=== PATIENT | male | born 1955 | race Caucasian/White ===

== ENCOUNTER 2017-03-28 06:37 | Day surgery (SDC) | payer BC ==
[~2017-03-28] VITALS: Ht 180.3 cm; Wt 75.0 kg
[2017-03-28] VITALS (8 sets, daily range): BP systolic 92–106; BP diastolic 60–75; PULSE 71–79; TEMP 98.2
[~2017-03-28 06:37] MED LIST: ACTOS 15MG TAB15 MG PO; ASPIRIN E.C. 8181 MG; BETAPACE160 MG PO; BYDUREON P2 MG/0.65; BYDUREON2MG; CARDI-OMEGA1000 MG; DUO-KAPS1 CAP; FARXIGA5 PO; GLUCOPHAGE1000 MG PO; LIPITOR20 MG PO; MULTI VITAMINS1 TAB PO; NORCO 325 MG-51 TAB PO; OYSTER CALCIUM500 M1; OYSTER SHELL C500 M4 PO; SYNTHROID 0.0.025 MG PO; TOPROL XL 25MG25 MG PO; XARELTO10 MG PO; ZANAFLEX2 MG PO
[2017-03-28] MEDS ORDERED: MAGNESIUM250 M1 PO (06:53)
[2017-03-28] MEDS ORDERED: TRULICITY1.5 MG/0.5 SQ (06:54)
[2017-03-28] MEDS ORDERED: GLUCOPHAGE1000 MG PO (06:54)
[2017-03-28] MEDS ORDERED: XARELTO20 MG PO (06:55)
[2017-03-28 07:19] LABS: HEMATOCRIT 43.9 % (42.0-52.0); HEMOGLOBIN 15.5 g/dl (13.5-18.0); MEAN CELL VOLUME 88 fl (80.0-100.0); MEAN CORPUSCULAR HEMOGLOBIN 31 pg (27.0-31.0); MEAN CORPUSCULAR HGB CONC 35 g/dl (33.0-37.0); MEAN PLATELET VOLUME 10.3 fl (7.4-10.4); PLATELET COUNT 204 K/mm3 (130-400); RED BLOOD COUNT 5.02 M/mm3 (4.20-5.60); REDCELL DISTRIBUTION WIDTH-CV 12.2 % (11.5-14.5); WHITE BLOOD COUNT 8.2 K/mm3 (4.8-10.8)
[2017-03-28 07:28] LABS: INR 1.1 (0.8-3.0); PROTHROMBIN TIME 11.9 SECONDS (9.7-12.8)
[2017-03-28 07:40] LABS: CALCIUM 8.7 mg/dL (8.4-10.2); CREATININE, serum 0.76 mg/dL (0.66-1.25)
== END 2017-03-28 10:07 | disposition home or self-care (01) ==
LOC: EUO 06:37 → COL.CAR 06:45 → EUO 10:07
PROVIDERS: Internal Medicine Cardiovascular Disease
DX: I48.0 Paroxysmal atrial fibrillation (principal); E11.9 Type 2 diabetes mellitus without complications; E78.2 Mixed hyperlipidemia; Z79.01 Long term (current) use of anticoagulants; Z79.84 Long term (current) use of oral hypoglycemic drugs; Z82.49 Family history of ischemic heart disease and other diseases of the circulatory system; Z80.42 Family history of malignant neoplasm of prostate
CPT/HCPCS: J2704

== ENCOUNTER 2017-12-06 07:04 | Day surgery (SDC) | payer BC ==
[2017-12-06] VITALS (7 sets, daily range): BP systolic 90–105; BP diastolic 59–70; PULSE 75–82
[~2017-12-06] VITALS: Ht 180.3 cm; Wt 74.6 kg
[~2017-12-06 07:04] MED LIST changes: +CALCIUM 600MG+D1 TAB PO; +MAGNESIUM250 M1 PO; -OYSTER SHELL C500 M4 PO; +TRULICITY1.5 MG/0.5 SQ; +XARELTO20 MG PO
[2017-12-06 07:54] LABS: INR 1.3 (0.8-3.0); PROTHROMBIN TIME 14.5 SECONDS (9.7-12.8)
[2017-12-06 08:01] LABS: HEMATOCRIT 43.6 % (42.0-52.0); HEMOGLOBIN 15.3 g/dl (13.5-18.0); MEAN CELL VOLUME 89 fl (80.0-100.0); MEAN CORPUSCULAR HEMOGLOBIN 31 pg (27.0-31.0); MEAN CORPUSCULAR HGB CONC 35 g/dl (33.0-37.0); MEAN PLATELET VOLUME 10.5 fl (7.4-10.4); PLATELET COUNT 211 K/mm3 (130-400); RED BLOOD COUNT 4.88 M/mm3 (4.20-5.60); REDCELL DISTRIBUTION WIDTH-CV 12.3 % (11.5-14.5)
[2017-12-06 08:09] LABS: CALCIUM 8.8 mg/dL (8.4-10.2); CREATININE, serum 0.82 mg/dL (0.66-1.25); POTASSIUM 3.7 mmol/L (3.4-5.0)
[2017-12-06] MEDS ORDERED: ZYRTEC 10MG10 MG PO (08:25)
[2017-12-06] MEDS ORDERED: PRESERVISION1 SGL PO (08:26)
[2017-12-06] MEDS ORDERED: TAMBOCOR 1100 MG/TAB PO ×3 (09:01→09:07)
[2017-12-06] MEDS ORDERED: ZEBETA 5MG5 MG PO (09:01)
[2017-12-06] MEDS ORDERED: TAMBOCOR50 MG PO (09:10)
== END 2017-12-06 10:51 | disposition home or self-care (01) ==
LOC: COL.CAR 07:04
PROVIDERS: Internal Medicine Cardiovascular Disease
DX: I48.91 Unspecified atrial fibrillation (principal); Z79.01 Long term (current) use of anticoagulants; E03.9 Hypothyroidism, unspecified; E11.42 Type 2 diabetes mellitus with diabetic polyneuropathy; Z79.84 Long term (current) use of oral hypoglycemic drugs; Z79.899 Other long term (current) drug therapy; I45.10 Unspecified right bundle-branch block; F41.9 Anxiety disorder, unspecified; I10 Essential (primary) hypertension
CPT/HCPCS: J2704; J7120

== ENCOUNTER 2018-01-31 11:23 | Emergency (ER) | payer BC ==
[~2018-01-31] VITALS: Ht 180.3 cm; Wt 72.7 kg
[~2018-01-31 11:23] MED LIST changes: +PRESERVISION1 SGL PO; +TAMBOCOR 1100 MG/TAB PO; +TAMBOCOR50 MG PO; +ZEBETA 5MG5 MG PO; +ZYRTEC 10MG10 MG PO
[2018-01-31 11:51] LABS: BASO % 0.3 % (0.0-2.0); EOS # 0.1 (0.0-0.7); EOS % 0.4 % (0-4.0); GRAN # 9.8 (1.4-6.5); GRAN % 79.6 % (42.2-75.2); HEMATOCRIT 43.7 % (42.0-52.0); HEMOGLOBIN 15.1 g/dl (13.5-18.0); LYMPH # 1.3 (1.2-3.4); LYMPH % 10.6 % (20.0-51.0); MEAN CELL VOLUME 89 fl (80.0-100.0); MEAN CORPUSCULAR HEMOGLOBIN 31 pg (27.0-31.0); MEAN CORPUSCULAR HGB CONC 35 g/dl (33.0-37.0); MEAN PLATELET VOLUME 10.4 fl (7.4-10.4); MONO # 1.1 (0.1-0.6); MONO % 8.9 % (1.7-9.3); PLATELET COUNT 209 K/mm3 (130-400); RED BLOOD COUNT 4.91 M/mm3 (4.20-5.60); REDCELL DISTRIBUTION WIDTH-CV 12.5 % (11.5-14.5)
[2018-01-31 11:56] LABS: PROTHROMBIN TIME 11.3 SECONDS (9.7-12.8)
[2018-01-31 11:59] LABS: ALANINE AMINOTRANSFERASE 65 U/L (21-72); ALBUMIN 4.1 gm/dL (3.5-5.0); ALKALINE PHOSPHATASE 101 U/L (50-136); ANION GAP 10 mmol/L (7-16); AST,SGOT 60 U/L (15-37); BILIRUBIN,TOTAL 0.7 mg/dL (0.0-1.0); BLOOD UREA NITROGEN 17 mg/dL (9-20); CALCIUM 9.2 mg/dL (8.4-10.2); CARBON DIOXIDE 23 mmol/L (22-30); CHLORIDE 102 mmol/L (98-107); CREATININE, serum 0.83 mg/dL (0.66-1.25); GLUCOSE 176 mg/dL (74-106); PARTIAL THROMBOPLASTIN TIME 36.8 SECONDS (26.0-37.0); POTASSIUM 3.9 mmol/L (3.4-5.0); SODIUM 135 mmol/L (137-145); TOTAL PROTEIN 7.1 gm/dL (6.4-8.2)
[2018-01-31 12:11] LABS: TROPONIN-I < 0.012 ng/mL (0.000-0.034)
[2018-01-31 12:55] VITALS: TEMP 97.9
[2018-01-31 14:02] LABS: C-REACTIVE PROTEIN 2.5 mg/dL (0.0-0.9)
[2018-01-31 14:11] LABS: TROPONIN-I < 0.012 ng/mL (0.000-0.034)
[2018-01-31] MEDS ORDERED: NORCO 325 MG-51 TAB PO (14:54)
[2018-01-31 15:27] VITALS: BP 118/64; PULSE 71
== END 2018-01-31 15:27 | disposition home or self-care (01) ==
LOC: COL.ER 11:23
PROVIDERS: Family Medicine
DX: R07.89 Other chest pain (principal); K21.9 Gastro-esophageal reflux disease without esophagitis; E11.9 Type 2 diabetes mellitus without complications; I48.91 Unspecified atrial fibrillation; Z79.84 Long term (current) use of oral hypoglycemic drugs

== ENCOUNTER → 2018-07-22 | Outpatient (CLI) | payer BC | LOC: COL.RAD 08:48 | DX: R94.5 Abnormal results of liver function studies (principal) ==

== ENCOUNTER → 2023-05-09 | Outpatient (CLI) | payer MEDICARE, BC ==
[2023-05-09] VITALS (18 sets, daily range): O2SAT 93–97
[~2023-05-09] MED LIST changes: +AMITRIPTYLINE H10 M1 PO; +CLARITIN 1010 MG/TAB PO; +MELATONIN5 M1 PO; +PACERONE100 MG PO; +PACERONE200 MG PO; -SYNTHROID 0.0.025 MG PO; +SYNTHROID0.1 MG/TAB PO; -TRULICITY1.5 MG/0.5 SQ; +TRULICITY3 MG/0.5 M SQ
[2023-05-09 09:57] LABS: ALBUMIN 3.5 gm/dL (3.4-4.8); BILIRUBIN,TOTAL 0.3 mg/dL (0.2-1.2); CALCIUM 8.8 mg/dL (8.4-10.2); CHOLESTEROL RISK RATIO 2.2; CREATININE, serum 1.13 mg/dL (0.72-1.25); POTASSIUM 3.8 mmol/L (3.5-4.5); TOTAL PROTEIN 6.6 gm/dL (6.2-8.1)
[2023-05-09 10:17] LABS: THYROID STIMULATING HORMONE 8.131 uIU/mL (0.350-4.940)
== END ==
LOC: COL.LAB 09:33
PROVIDERS: Nurse Practitioner
DX: E11.9 Type 2 diabetes mellitus without complications (principal); Z86.59 Personal history of other mental and behavioral disorders